=== PATIENT | female | born 1980 | race Asian ===

== ENCOUNTER 2017-09-23 14:43 | Emergency (ER) | payer MEDICAID ==
[~2017-09-23] VITALS: Ht 154.9 cm; Wt 73.1 kg
[~2017-09-23 14:43] MED LIST: FERR325E14 PO; FOLI1TAB19 PO; PREN-385 PO
[2017-09-23 14:55] VITALS: BP 114/71
--- NOTE | 2017-09-23 15:02 | NUR ---
PT AMBULATED TO BED 1.
--- NOTE | 2017-09-23 15:03 | NUR ---
KEVIN WOODS DR. SECHRIST EVALUATING PT AT BEDSIDE.
--- NOTE | 2017-09-23 15:03 | NUR ---
37F BIB SELF C/O ACHING EPIGASTRIC PAIN WITH BLOATING, NON-RADIATING, 6/10 X 3 WEEKS, WORSENING X 3 DAYS; PT STATES PAIN WORSENS WITH EATING OR DRINKING; PT STATES NO N/V/D AT THIS TIME; ABDOMEN SOFT, NON-TENDER, ACTIVE BOWEL SOUNDS X 4 QUADRANTS; PT AA&OX4, BL LUNG SOUNDS CLEAR, RR EVEN/UNLABORED, SKIN IS WARM/DRY/INTACT WITH EVEN AND STEADY GAIT; PT RESTING IN BED WITH HOB ELEVATED AND IN LOWEST POSITION; POSITIONED FOR COMFORT; ER MD MADE AWARE OF STATUS. WILL CONTINUE TO MONITOR.
[2017-09-23] MEDS ORDERED: DICYCLOMINE HCL LIQUID 20 MG, ALUMINUM HYD/MAG/SIMETHICONE 30 ML, LIDOCAINE VISCOUS 2% ... PO ONE ×3 (15:10)
--- NOTE | 2017-09-23 15:23 | NUR ---
LAB AT BEDSIDE
[2017-09-23 15:40] LABS: APPEARANCE,URINE CLEAR (CLEAR); BILIRUBIN,URINE NEGATIVE (NEGATIVE); BLOOD, URINE NEGATIVE (NEGATIVE); COLOR,URINE YELLOW (YELLOW); LEUKOCYTE ESTERASE ,URINE NEGATIVE (NEGATIVE); NITRITE, URINE NEGATIVE (NEGATIVE); UGLUCOSE NEGATIVE (NEGATIVE)
[2017-09-23 15:40] LABS: BASOPHILS # (AUTO) 0.2 K/uL (0.00-0.22); BASOPHILS % (AUTO) 1.5 % (0.0-2.0); EOSINOPHILS # (AUTO) 0.1 K/uL (0-0.4); EOSINOPHILS % (AUTO) 1.3 % (0.0-4.0); HEMOGLOBIN 12.3 g/dL (12.0-16.0); LYMPHOCYTES # (AUTO) 2.6 K/uL (2.5-16.5); LYMPHOCYTES % (AUTO) 24.3 % (20.5-51.1); MEAN CORPUSCULAR HEMOGLOBIN 27 pg (27-31); MEAN CORPUSCULAR HGB CONC 32 g/dL (33-37); MEAN CORPUSCULAR VOLUME 84 fL (80-94); MONOCYTES # (AUTO) 0.7 K/uL (0.8-1.0); NEUTROPHILS # (AUTO) 7.1 K/uL (1.8-7.7); NEUTROPHILS % (AUTO) 65.9 % (42.2-75.2); PLATELET COUNT (AUTO) 273 K/uL (140-450); RED BLOOD CELL COUNT(AUTO) 4.51 MIL/uL (4.20-5.40); RED CELL DISTRIBUTION WIDTH 15.3 % (11.6-13.7); WHITE BLOOD COUNT (AUTO) 10.7 K/uL (4.8-10.8)
[2017-09-23 15:51] LABS: ANION GAP 13.6 (8-16); CARBON DIOXIDE 24.3 mmol/L (21-32); CREATININE 0.6 mg/dL (0.6-1.3); POTASSIUM 3.9 mmol/L (3.5-5.1)
[2017-09-23 15:56] LABS: ALBUMIN 3.8 g/dL (3.4-5.0); TOTAL BILIRUBIN 0.3 mg/dL (0.0-1.0)
[2017-09-23 16:52] VITALS: BP 122/78
--- NOTE | 2017-09-23 16:52 | NUR ---
Patient discharged with v/s stable. Written and verbal after care instructions given and explained. Patient verbalized understanding. Ambulatory with steady gait. All questions addressed prior to discharge. Advised to follow up with PMD.
== END 2017-09-23 16:52 | disposition home or self-care (01) ==
LOC: MED 14:43
DX: O26.891 Other specified pregnancy related conditions, first trimester (principal); R10.13 Epigastric pain; Z88.0 Allergy status to penicillin
CPT/HCPCS: 36415; 80053; 81003; 81025; 83690; 84702; 85025; 99284

== ENCOUNTER 2018-01-23 09:31 | Day surgery (SDC) | payer MEDICAID ==
[~2018-01-23] VITALS: Ht 162.6 cm; Wt 73.9 kg
[2018-01-23] MEDS ORDERED: fentaNYL 0.05 MG/ML VIAL ONE (13:26)
[2018-01-23] MEDS: MIDAZOLAM 2 MG/2 ML VIAL ONE (13:39)
== END 2018-01-23 14:50 | disposition home or self-care (01) ==
LOC: MMU 09:31 → MDS 09:31
PROVIDERS: ATTEND Internal Medicine Gastroenterology
DX: K25.9 Gastric ulcer, unspecified as acute or chronic, without hemorrhage or perforation (principal); K21.9 Gastro-esophageal reflux disease without esophagitis; E66.3 Overweight; F32.9 Major depressive disorder, single episode, unspecified; I51.89 Other ill-defined heart diseases; Z98.890 Other specified postprocedural states; Z88.0 Allergy status to penicillin; Z79.899 Other long term (current) drug therapy; Z68.25 Body mass index [BMI] 25.0-25.9, adult
CPT/HCPCS: 36415; 43239; 86677; J2250; J7120; J3010

== ENCOUNTER 2018-01-26 14:38 | Emergency (ER) | payer MEDICAID ==
[~2018-01-26] VITALS: Ht 167.6 cm; Wt 75.5 kg
[2018-01-26 14:48] VITALS: BP 118/81
--- NOTE | 2018-01-26 15:11 | NUR ---
PATIENT AMBULATED TO ER BED 9
--- NOTE | 2018-01-26 15:15 | NUR ---
ASSUMED TEMPORARY CARE OF PT AT THIS TIME FOR PRIMARY RN WHO IS ON 30 MIN. BREAK. C/O LEFT LOWER DENTAL PAIN X 2 DAYS MOUNT [employer]. AAOX4 WITH EVEN AND STEADY GAIT; PATIENT STATES PAIN OF 10/10 AT THIS TIME; VSS; PATIENT POSITIONED FOR COMFORT; HOB ELEVATED; BEDRAILS UP X2; BED DOWN. ER MD MADE AWARE OF PT STATUS. WILL CONTINUE TO MONITOR.
[2018-01-26 15:25] VITALS: BP 118/81
--- NOTE | 2018-01-26 15:25 | NUR ---
Patient discharged with v/s stable. Written and verbal after care instructions given and explained. Patient alert, oriented and verbalized understanding of instructions. Ambulatory with steady gait. All questions addressed prior to discharge. ID band removed. Patient advised to follow up with PMD. Rx of CLINDAMYCIN AND NAPROSYN given. Patient educated on indication of medication including possible reaction and side effects. Opportunity to ask questions provided and answered.
== END 2018-01-26 15:25 | disposition home or self-care (01) ==
LOC: MED 14:38
DX: K08.89 Other specified disorders of teeth and supporting structures (principal); Z88.0 Allergy status to penicillin; Z79.899 Other long term (current) drug therapy
CPT/HCPCS: 99283

== ENCOUNTER 2020-11-19 16:14 | Emergency (ER) | payer MEDICAID ==
[~2020-11-19] VITALS: Ht 157.5 cm; Wt 78.0 kg
[2020-11-19] MEDS ORDERED: IBUP-2213 PO (17:36)
[2020-11-19 17:46] VITALS: BP 129/80
== END 2020-11-19 17:47 | disposition home or self-care (01) ==
LOC: MED 16:14
DX: S92.911A Unspecified fracture of right toe(s), initial encounter for closed fracture (principal); Z88.0 Allergy status to penicillin; W22.8XXA Striking against or struck by other objects, initial encounter; Y93.89 Activity, other specified; Y92.89 Other specified places as the place of occurrence of the external cause; Y99.8 Other external cause status
CPT/HCPCS: 29515; 73630; 99283

== ENCOUNTER 2021-02-18 11:57 | Emergency (ER) | payer MEDICAID ==
[~2021-02-18] VITALS: Ht 157.5 cm; Wt 79.4 kg
[~2021-02-18 11:57] MED LIST changes: +IBUP-2213 PO
[2021-02-18 12:08] VITALS: BP 115/92
--- NOTE | 2021-02-18 12:15 | NUR ---
Patient ambulated to bed 09 with steady/even gait.
--- NOTE | 2021-02-18 12:25 | NUR ---
41 y/o F BIB self from home with c/c left sided flank pain x 2 weeks. Patient A&Ox4, ambulatory, reports left sided flank pain, 10/10, sharp/constant, with intermittent radiation to left suprapubic region. Patient reports pain worsens with deep breaths, and standing/sitting. Patient seen by PCP, MRI completed 07/2020. States minor urinary hesitancy. Patient denies dysuria, nausea, vomiting, diarrhea, fever/chills, cough, cold-like symptoms. Last BM: this morning normal. Bowel sounds normoactive x 4 quadrants. Gown at bedside. VSS; respirations even/unlabored. Bed locked in lowest position, side rails x 1, call light in reach. PMH: DM, HTN, HLD Meds: Gabapentin ALLERGIES: PCN
[2021-02-18] MEDS ORDERED: KETOROLAC 30 MG/ML VIAL IM ONE (12:55)
[2021-02-18] MEDS ORDERED: NAPR-54 PO (12:57)
[2021-02-18] MEDS ORDERED: METH-1681 PO (12:57)
--- NOTE | 2021-02-18 13:07 | NUR ---
Patient resting in position of comfort in semi-fowlers. Bed locked in lowest position, side rails x 1, call light in reach.
[2021-02-18 13:21] VITALS: BP 115/92
--- NOTE | 2021-02-18 13:21 | NUR ---
Patient discharged with v/s stable. Written and verbal after care instructions given and explained. Patient alert, oriented and verbalized understanding of instructions. Ambulatory with steady gait. All questions addressed prior to discharge. ID band removed. Patient advised to follow up with PMD. Rx of METHOCARBAMOL, NAPROXEN given. Patient educated on indication of medication including possible reaction and side effects. Opportunity to ask questions provided and answered.
== END 2021-02-18 13:17 | disposition home or self-care (01) ==
LOC: MED 11:57
DX: S29.012A Strain of muscle and tendon of back wall of thorax, initial encounter (principal); E11.9 Type 2 diabetes mellitus without complications; I10 Essential (primary) hypertension; Z88.0 Allergy status to penicillin; X58.XXXA Exposure to other specified factors, initial encounter; Y93.89 Activity, other specified; Y92.89 Other specified places as the place of occurrence of the external cause; Y99.8 Other external cause status
CPT/HCPCS: 81002; 81025; 96372; 99283; J1885

== ENCOUNTER 2023-02-03 16:54 | Emergency (ER) | payer MEDICAID ==
[~2023-02-03] VITALS: Ht 157.5 cm; Wt 78.9 kg
[~2023-02-03 16:54] MED LIST changes: +METH-1681 PO; +NAPR-54 PO
[2023-02-03 17:27] VITALS: PULSE 77; RESP 18; TEMP 98; O2SAT 98
[2023-02-03] MEDS ORDERED: METH-1681 PO (17:50)
[2023-02-03] MEDS ORDERED: NAPR-54 PO (17:50)
[2023-02-03 17:59] VITALS: PULSE 77; RESP 18; TEMP 98; O2SAT 98
--- NOTE | 2023-02-03 18:01 | NUR ---
Patient discharged with v/s stable. Written and verbal after care instructions given and explained. Patient alert, oriented and verbalized understanding of instructions. Ambulatory with steady gait. All questions addressed prior to discharge. ID band removed. Patient advised to follow up with PMD. Rx of ROBAXIN, NAPROXEN given. Patient educated on indication of medication including possible reaction and side effects. Opportunity to ask questions provided and answered.
== END 2023-02-03 18:01 | disposition home or self-care (01) ==
LOC: MED 16:54
DX: G89.29 Other chronic pain (principal); M54.9 Dorsalgia, unspecified; M41.9 Scoliosis, unspecified; Z76.0 Encounter for issue of repeat prescription; E11.9 Type 2 diabetes mellitus without complications; I10 Essential (primary) hypertension; Z98.890 Other specified postprocedural states; Z79.899 Other long term (current) drug therapy; Z79.1 Long term (current) use of non-steroidal anti-inflammatories (NSAID); Z88.0 Allergy status to penicillin
CPT/HCPCS: 99282

== ENCOUNTER 2023-05-13 10:19 | Emergency (ER) | payer MEDICAID ==
[~2023-05-13] VITALS: Ht 157.5 cm; Wt 78.0 kg
[2023-05-13 10:37] VITALS: BP 123/80; PULSE 62; RESP 18; TEMP 97.8; O2SAT 98
[2023-05-13] MEDS ORDERED: KETOROLAC 30 MG/ML VIAL IM ONE (12:15)
[2023-05-13] MEDS ORDERED: NAPR-54 PO (13:28)
[2023-05-13 13:49] VITALS: BP 123/80; PULSE 62; RESP 18; TEMP 97.8; O2SAT 98
== END 2023-05-13 13:49 | disposition home or self-care (01) ==
LOC: MED 10:19
DX: S86.912A Strain of unspecified muscle(s) and tendon(s) at lower leg level, left leg, initial encounter (principal); E11.9 Type 2 diabetes mellitus without complications; I10 Essential (primary) hypertension; Z79.1 Long term (current) use of non-steroidal anti-inflammatories (NSAID); Z79.899 Other long term (current) drug therapy; Z88.0 Allergy status to penicillin; X58.XXXA Exposure to other specified factors, initial encounter; Y92.89 Other specified places as the place of occurrence of the external cause; Y93.89 Activity, other specified; Y99.8 Other external cause status
CPT/HCPCS: 73562; 96372; 99283; J1885

== ENCOUNTER 2024-02-23 20:44 | Emergency (ER) | payer SELFPAY ==
[~2024-02-23] VITALS: Ht 157.5 cm; Wt 77.1 kg
[~2024-02-23 20:44] MED LIST changes: +NAPR-337 PO; -NAPR-54 PO
[2024-02-23 21:10] VITALS: BP 110/73; PULSE 72; RESP 20; TEMP 97.8; O2SAT 99
[2024-02-23 21:40] LABS: BASOPHILS # (AUTO) 0.1 K/uL (0.00-0.22); BASOPHILS % (AUTO) 0.7 % (0.0-2.0); EOSINOPHILS # (AUTO) 0.4 K/uL (0-0.4); EOSINOPHILS % (AUTO) 3.7 % (0.0-4.0); HEMATOCRIT 35.3 % (36-48); HEMOGLOBIN 11.4 g/dL (12.0-16.0); LYMPHOCYTES # (AUTO) 3.1 K/uL (2.5-16.5); LYMPHOCYTES % (AUTO) 29.8 % (20.5-51.1); MEAN CORPUSCULAR HEMOGLOBIN 26 pg (27-31); MEAN CORPUSCULAR HGB CONC 33 g/dL (33-37); MONOCYTES # (AUTO) 0.9 K/uL (0.8-1.0); MONOCYTES % (AUTO) 8.4 % (1.7-9.3); NEUTROPHILS # (AUTO) 6.1 K/uL (1.8-7.7); NEUTROPHILS % (AUTO) 57.4 % (42.2-75.2); PLATELET COUNT (AUTO) 316 K/uL (140-450); RED BLOOD CELL COUNT(AUTO) 4.41 MIL/uL (4.20-5.40); RED CELL DISTRIBUTION WIDTH 15.9 % (11.6-13.7); WHITE BLOOD COUNT (AUTO) 10.6 K/uL (4.8-10.8)
[2024-02-23 22:05] LABS: APPEARANCE,URINE CLEAR (CLEAR); BILIRUBIN,URINE NEGATIVE (NEGATIVE); BLOOD, URINE NEGATIVE (NEGATIVE); COLOR,URINE YELLOW (YELLOW); LEUKOCYTE ESTERASE ,URINE NEGATIVE (NEGATIVE); NITRITE, URINE NEGATIVE (NEGATIVE); PROTEIN,URINE NEGATIVE (NEGATIVE); UGLUCOSE NEGATIVE (NEGATIVE); UROBILINOGEN,URINE 0.2 EU/dL (0.2 - 1)
[2024-02-23 22:07] LABS: ANION GAP 11.9 (8-16); CALCIUM 9.1 mg/dL (8.5-10.1); CARBON DIOXIDE 28.5 mmol/L (21-32); CREATININE 0.6 mg/dL (0.6-1.3); POTASSIUM 3.4 mmol/L (3.5-5.1)
[2024-02-23 22:19] LABS: ALBUMIN 3.7 g/dL (3.4-5.0); TOTAL BILIRUBIN 0.1 mg/dL (0.0-1.0); TOTAL PROTEIN, SERUM 7.8 g/dL (6.4-8.2)
[2024-02-23] MEDS: KETOROLAC 30 MG/ML VIAL IM ONE (22:24)
[2024-02-23] MEDS: LIDOCAINE 5% 1 EA PATCH TP ONE (22:25)
[2024-02-23] MEDS ORDERED: IBUP-2218 PO (23:14)
[2024-02-23] MEDS ORDERED: CYCL-711 PO (23:14)
== END 2024-02-23 23:22 | disposition home or self-care (01) ==
LOC: MED 20:44
DX: M54.41 Lumbago with sciatica, right side (principal); R07.89 Other chest pain; D64.9 Anemia, unspecified; Z79.1 Long term (current) use of non-steroidal anti-inflammatories (NSAID); Z79.899 Other long term (current) drug therapy; Z88.0 Allergy status to penicillin
CPT/HCPCS: 36415; 80048; 80076; 81003; 81025; 83690; 85025; 93005; 96372; 99284; J1885